=== PATIENT | male | born 1965 | race Caucasian/White ===

== ENCOUNTER 2024-10-28 15:52 | Emergency (ER) | payer OTHER, BC | END 2024-10-28 17:23 | disposition home or self-care (01) | LOC: JD.ED 15:52 | DX: S51.011A Laceration without foreign body of right elbow, initial encounter (principal); S70.11XA Contusion of right thigh, initial encounter; S40.021A Contusion of right upper arm, initial encounter; Z88.5 Allergy status to narcotic agent; Z79.899 Other long term (current) drug therapy; V29.408A Other motorcycle driver injured in collision with unspecified motor vehicles in traffic accident, initial encounter; Y93.89 Activity, other specified | CPT/HCPCS: 99282; 99283 ==